=== PATIENT | female | born 1945 | race Caucasian/White ===

== ENCOUNTER → 2016-12-17 | Outpatient (CLI) | payer MEDICARE, OTHER ==
--- NOTE | 2016-12-19 21:25 | MRI ---
MRI left knee without contrast INDICATION: Knee pain medial side no specific injury TECHNIQUE: Noncontrast MR imaging left knee standard protocol FINDINGS: Cruciate ligaments are intact. Extensor tendons are intact. There is developing osteoarthrosis in the medial greater than lateral tibiofemoral compartments. Fairly diffuse up to grade 4 chondrosis in the medial tibiofemoral compartment with mild joint space narrowing and multifocal mild subchondral edema and early cystic change most notable in the medial femoral condyle. Borderline discoid morphology lateral meniscus. Multifocal chondrosis of the lateral tibial plateau near the midline. Degenerative fraying of the medial meniscus. No disruption of the collateral ligaments. Prominent fluid in the popliteus sheath/recess with synovitis. Moderate joint effusion otherwise. Minimal Treviño's cyst fluid. Multifocal up to grade 4 patellofemoral chondrosis most severe at the patellar apex and medial facet with subchondral edema. Normal patellofemoral alignment. There are patellofemoral osteophytes as well. There is a small ossified appearing body along the anterior horn medial meniscus sagittal series 501 image #16 measuring about 4 mm in diameter. 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
== END | disposition home or self-care (01) ==
LOC: MRI 10:58
PROVIDERS: ATTEND Family Medicine
DX: S83.242A Other tear of medial meniscus, current injury, left knee, initial encounter (principal); X58.XXXA Exposure to other specified factors, initial encounter

== ENCOUNTER → 2017-02-15 | Outpatient (CLI) | payer MEDICARE, OTHER | END | disposition home or self-care (01) | LOC: GMAL 10:38 | PROVIDERS: ATTEND Family Medicine | DX: R53.83 Other fatigue (principal) ==

== ENCOUNTER → 2017-03-14 | Outpatient (CLI) | payer MEDICARE, OTHER | LOC: RESP 08:43 | PROVIDERS: ATTEND Orthopaedic Surgery | DX: Z01.818 Encounter for other preprocedural examination (principal) ==